=== PATIENT | male | born 1950 | race Caucasian/White ===

== ENCOUNTER → 2017-08-03 13:06 | Outpatient (CLI) | payer OTHER, SELFPAY ==
--- NOTE | 2017-08-04 16:36 | DI.NM.S_ITS ---
DATE OF SERVICE: 08/03/2017 PROCEDURE PERFORMED: Pharmacologic vasodilator stress and rest myocardial perfusion imaging study with gating to assess ejection fraction and regional wall motion. ORDERING PROVIDER: Bi Esquivel MD INDICATIONS: The patient is a 67-year-old male with lymphoma and an abnormal ECG who requires preoperative risk assessment prior to surgery. CARDIAC STRESS: Per protocol, 0.4 mg of regadenoson was infused, augmented by handgrip exercise. With this, the patient had a normal hemodynamic response and had no chest discomfort. The resting ECG is normal with the exception of some subtle, nonspecific ST abnormalities in the anterolateral leads which remain unchanged with stress. There were no arrhythmias. Per protocol, 26.3 mCi of technetium-99 Myoview IV was injected, and the patient was imaged 15 minutes later using a gated SPECT acquisition protocol. The patient returned the following day and was reinjected with an additional 24.4 mCi of technetium-99 Myoview and was imaged 30 minutes later, again using a gated SPECT acquisition protocol. FINDINGS: 1. RAW DATA: There was moderate myocardial tracer activity with some motion noted. The patient was unable to lie prone because of his immobility. The lung/heart ratio is borderline elevated at 0.42, although this is nonspecific in the setting of vasodilator stress. TID ratio is normal at 0.79. 2. QUANTITATIVE GATED SPECT: Post stress ejection fraction is estimated at 87% without any obvious focal wall motion abnormality although image quality is quite poor. Resting ejection fraction is estimated at 70% with an end-diastolic volume of 101 mL. 3. MYOCARDIAL PERFUSION IMAGING: Post stress supine images show a fairly normal perfusion pattern with just very subtle reduced counts at the base of the inferior wall which likely reflect diaphragmatic attenuation. There are no prone images to assess for diaphragmatic attenuation. The resting images show an identical perfusion pattern without any clear areas of improvement. IMPRESSION: 1. Probable normal myocardial perfusion study. 2. Subtle fixed proximal inferior perfusion defect which likely reflects diaphragmatic attenuation given the absence of any regional wall motion abnormality in this area. There is no compelling evidence for any myocardial ischemia or previous myocardial infarction. 3. Normal left ventricular systolic function without any focal wall motion abnormality. The lung/heart ratio is borderline elevated at 0.42, which can be a sign of pulmonary congestion but it is nonspecific in the setting of vasodilator stress. 4. No angina or ECG evidence of ischemia with pharmacologic vasodilator stress. Matthieu Little - Carrie/vinh doc#: [id number]/job#: [id number] dd: 08/04/2017 12:48:00 dt: 08/04/2017 16:24:00 DICTATING MD/COPIES TO: Kadeem Gambino MD; Bi Esquivel MD COPIES MNE: JEREMIAS ALMEIDA
== END ==
PROVIDERS: PCP Internal Medicine; Visit Provider Internal Medicine Cardiovascular Disease
DX: R94.31 Abnormal electrocardiogram [ECG] [EKG] (principal); C85.90 Non-Hodgkin lymphoma, unspecified, unspecified site
CPT/HCPCS: 78452; 93016; 93017; 93018; A9502; J2785